=== PATIENT | male | born 1985 | race Hispanic/Latino ===

== ENCOUNTER 2019-10-06 22:21 | Emergency (ER) | payer SELFPAY ==
--- NOTE | 2019-10-06 22:40 | Emergency Department Report ---
ED Medical Clearance HPI - General Chief complaint: Medical Clearance Stated complaint: RAPID HEARTBEAT Time Seen by Provider: 10/06/19 22:26 Source: patient, EMS (Verbal report received from emergency medical services. My EMS disclaimer), RN notes reviewed Mode of arrival: Stretcher Limitations: No Limitations - History of Present Illness Initial comments: The patient is a 34-year-old gentleman who is currently on a 1013, brought to the hospital by emergency medical services for resolved tachycardia. The patient has no complaints at this time. Apparently, the patient ingested methamphetamines recently, was placed on a 1013 for possible overdose, and sent to a local psychiatric hospital. Apparently, the patient was found to have a heart rate of 100, or greater than 100 (exact rate unknown), was given Lopressor, and was sent to the emergency room for further evaluation. The patient denies physical pain. He denies homicidality and suicidality. He denies wanting to kill himself. He has no medical complaints at this time. He does not endorse fever, cough, or any coronavirus symptoms. MD Complaint: medical clearance request Reason for Medical Clearance: medical condition Traumatic Symptoms: denies traumatic injury Treatments Prior to Arrival: medication, other Allergies/Adverse reactions: Allergies Allergy/AdvReac Type Severity Reaction Status Date / Time Penicillins Allergy Rash Verified 10/06/19 22:45 ED Review of Systems ROS: Stated complaint: RAPID HEARTBEAT Other details as noted in HPI Comment: All other systems reviewed and negative ED Physical Exam - General Limitations: No Limitations General appearance: alert, anxious - Head Head exam: Present: atraumatic, normocephalic - Eye Eye exam: Present: normal appearance, EOMI. Absent: nystagmus - ENT ENT exam: Present: normal exam, normal orophraynx, mucous membranes moist, normal external ear exam - Neck Neck exam: Present: normal inspection, full ROM. Absent: tenderness, meningismus - Respiratory Respiratory exam: Present: normal lung sounds bilaterally. Absent: respiratory distress - Cardiovascular Cardiovascular Exam: Present: regular rate, normal rhythm, normal heart sounds. Absent: bradycardia, tachycardia, irregular rhythm, systolic murmur, diastolic murmur, rubs, gallop - GI/Abdominal GI/Abdominal exam: Present: soft. Absent: distended, tenderness, guarding, rebound, rigid, pulsatile mass - Rectal Rectal exam: Present: deferred - Extremities Exam Extremities exam: Present: normal inspection, full ROM, other (2+ pulses noted in the bilateral upper and lower extremities. The pelvis is stable, there is no long bony tenderness, the compartments are soft, there is no palpable cord.). Absent: pedal edema, calf tenderness - Back Exam Back exam: Present: normal inspection, full ROM. Absent: tenderness, CVA tenderness (R), CVA tenderness (L), paraspinal tenderness, vertebral tenderness - Neurological Exam Neurological exam: Present: alert, oriented X3, other (no facial droop. Tongue midline. Extraocular movements intact bilaterally. Facial sensation intact to light touch in V1, V2, V3 distribution bilaterally. 5 and a 5 strength in 4 extremities. Sensation intact to light touch in 4 extremities.). Absent: motor sensory deficit - Psychiatric Psychiatric exam: Present: anxious. Absent: homicidal ideation, suicidal ideation - Skin Skin exam: Present: warm, dry, intact, normal color. Absent: rash ED Course Vital Signs 10/06/19 10/06/19 10/06/19 22:34 22:36 22:45 Temperature 97.9 F Pulse Rate 86 85 Respiratory 23 29 H Rate Blood Pressure 135/85 O2 Sat by Pulse 100 99 Oximetry 10/06/19 23:11 Temperature Pulse Rate Respiratory 18 Rate Blood Pressure O2 Sat by Pulse 100 Oximetry ED Medical Decision Making - Lab Data Result diagrams: 10/06/19 22:42 10/06/19 22:42 Vital Signs - 24 hr 10/06/19 10/06/19 10/06/19 22:34 22:36 22:45 Temperature 97.9 F Pulse Rate 86 85 Respiratory 23 29 H Rate Blood Pressure 135/85 O2 Sat by Pulse 100 99 Oximetry 10/06/19 23:11 Temperature Pulse Rate Respiratory 18 Rate Blood Pressure O2 Sat by Pulse 100 Oximetry Lab Results 10/06/19 10/06/19 Range/Units 22:42 22:42 Hgb 14.5 (11.8-15.2) gm/dl Hct 42.3 (35.5-45.6) % Sodium 136 L (137-145) mmol/L Potassium 3.7 (3.6-5.0) mmol/L Chloride 100.9 (98-107) mmol/L Carbon Dioxide 22 (22-30) mmol/L Anion Gap 17 mmol/L BUN 13 (9-20) mg/dL Creatinine 0.9 (0.8-1.5) mg/dL Estimated GFR > 60 ml/min BUN/Creatinine Ratio 14 % Glucose 88 (75-100) mg/dL Calcium 9.3 (8.4-10.2) mg/dL Magnesium 1.70 (1.7-2.3) mg/dL - EKG Data -: EKG Interpreted by Ar EKG shows normal: sinus rhythm, axis, intervals, QRS complexes, ST-T waves (High left ventricular voltage noted. Not a STEMI. No prior for comparison) Rate: normal - EKG Data When compared to previous EKG there are: previous EKG unavailable - Medical Decision Making Differential diagnosis, including but not limited to: Medical clearance, human physiology, methamphetamine effect Assessment and plan: 34-year-old gentleman, who is currently afebrile with reassuring vital signs, with no acute medical complaints, with a benign and unremarkable physical examination, unremarkable vital signs, unremarkable EKG, unremarkable laboratory studies, with a history of tachycardia. The patient does not appear to have an emergent medical condition at this time. He is medically suitable for discharge back to his psychiatric hospital. For uncertain/unclear reasons, he was referred to the emergency room for asymptomatic and resolved tachycardia. ED Disposition Clinical Impression: Medical clearance for psychiatric admission, History of tachycardia Disposition: [id number] PSY HOSP/PSY UNIT Is pt being admited?: No Does the pt Need Aspirin: No Condition: Stable Additional Instructions: Avoid consumption of methamphetamines, alcohol, and recreational drugs. Follow-up with the medical doctor within the next 4 weeks. Return to the emergency room right away with new, worsened or different symptoms, or symptoms not present on the initial emergency room evaluation. At this point in time, the patient does not appear to have an immediate medical contraindication to outpatient management/psychiatric consultation and placement. Please note that normal human physiology allows for variations in heart rate, and elevated heart rate/tachycardia without concerning clinical symptoms does not require emergency medical evaluation. Referrals: [facility] [Provider Group] - as needed
[2019-10-06] MEDS ORDERED: LORazepam 2 MG/ML VIAL IM PRN (22:46)
[2019-10-06 23:05] LABS: Hematocrit 42.3 % (35.5-45.6); Hemoglobin 14.5 gm/dl (11.8-15.2)
[2019-10-06 23:11] LABS: BUN/Creatinine Ratio 14; Blood Urea Nitrogen 13 mg/dL (9-20); Calcium 9.3 mg/dL (8.4-10.2); Hemolysis Index 8
[2019-10-07 00:16] VITALS: BP 125/85
== END 2019-10-07 00:17 ==
LOC: ED 22:21
DX: R00.0 Tachycardia, unspecified (principal); Z00.00 Encounter for general adult medical examination without abnormal findings; Z88.0 Allergy status to penicillin
CPT/HCPCS: 36415; 80048; 82550; 83735; 85014; 85018; 85049; 93005; 93010; 96372; 99284; J2060; 80320; G0480